=== PATIENT | male | born 1995 | race Two or more races ===

== ENCOUNTER 2019-06-27 20:33 | Emergency (ER) | payer MEDICAID ==
[~2019-06-27] VITALS: Ht 172.7 cm; Wt 63.6 kg
[~2019-06-27 20:33] MED LIST: DICY10CA88 PO; POTA20TA19 PO; ZOF4T PO
--- NOTE | 2019-06-27 20:35 | NUR ---
called him to triage him and he then stepped outside to get a friend.
[2019-06-27 20:36] VITALS: BP 167/112
--- NOTE | 2019-06-27 21:04 | NUR ---
PT CAME TO ROOM FOR A SECOND THEN LEFT
--- NOTE | 2019-06-27 21:21 | NUR ---
he is back and at registration desk. Informed pt that when he is placed into a room that he needs to stay there.
--- NOTE | 2019-06-27 21:48 | NUR ---
PT ANSWERED HIS PHONE AND ELOPED BEFORE SEEN BY PROVIDER
== END 2019-06-27 22:30 | disposition left against medical advice (07) ==
LOC: ER 20:34
DX: R20.0 Anesthesia of skin (principal); F10.99 Alcohol use, unspecified with unspecified alcohol-induced disorder; Z53.21 Procedure and treatment not carried out due to patient leaving prior to being seen by health care provider; Z88.8 Allergy status to other drugs, medicaments and biological substances; Z79.899 Other long term (current) drug therapy; Y90.9 Presence of alcohol in blood, level not specified
CPT/HCPCS: 99281